=== PATIENT | male | born 1990 | race Caucasian/White ===

== ENCOUNTER 2019-01-01 11:30 | Emergency (ER) | payer SELFPAY ==
[2019-01-01 14:03] VITALS: BP 130/89
[2019-01-01] MEDS ORDERED: Azithromycin TAB* 250 MG PO ONE (15:38)
[2019-01-01] MEDS ORDERED: cefTRIAXone VIAL(*) 250 MG VIAL IM ONE (15:38)
[2019-01-01] MEDS ORDERED: Lidocaine 1%* 5 ML VIAL INJ ONE (15:39)
--- NOTE | 2019-01-01 15:50 | UC ---
Complaint Male HPI - HPI Summary HPI Summary: 28-year-old male presents for testing for sexually transmitted infection stating that he was notified by one of his sexual partners that they had tested positive for either syphilis or chlamydia. Denies fever, chills, abdominal pain , nausea, vomiting, dysuria, frequency, urgency, hematuria, penile discharge, or penile lesions. - History of Current Complaint Chief Complaint: UCSTDScreening Stated Complaint: PERSONAL Time Seen by Provider: 01/01/19 14:39 Hx Obtained From: Patient Pain Intensity: 0 - Allergies/Home Medications Allergies/Adverse Reactions: Allergies Allergy/AdvReac Type Severity Reaction Status Date / Time No Known Allergies Allergy Verified 01/01/19 14:04 Home Medications: Home Medications NK [No Home Medications Reported] 01/01/19 [History Confirmed 01/01/19] PMH/Surg Hx/FS Hx/Imm Hx Previously Healthy: Yes - Denies significant PMH - Surgical History Surgical History: Yes Surgery Procedure, Year, and Place: collar bone reconstruction - Family History Known Family History: Positive: Non-Contributory - Social History Occupation: Student Lives: Dormitory/Roommates Alcohol Use: None Substance Use Type: None Smoking Status (MU): Never Smoked Tobacco Review of Systems All Other Systems Reviewed And Are Negative: Yes Constitutional: Negative: Fever, Chills Skin: Negative: Rash Respiratory: Positive: Negative Cardiovascular: Positive: Negative Gastrointestinal: Positive: Negative Genitourinary: Negative: Dysuria, Hematuria, Frequency, Urgency, Vaginal/Penile Burning, Vaginal/Penile Itching, Vaginal/Penile Discharge, Vaginal/Penile Pain, Vaginal/Penile Tenderness, Ulceration/Lesion Musculoskeletal: Positive: Negative Neurological: Positive: Negative Is Patient Immunocompromised?: No Physical Exam - Summary Physical Exam Summary: GENERAL APPEARANCE: Well developed, well nourished, alert and cooperative, and appears to be in no acute distress. NECK: Neck supple, non-tender without lymphadenopathy. CARDIAC: Normal S1 and S2. No S3, S4 or murmurs. Rhythm is regular. There is no peripheral edema, cyanosis or pallor. Extremities are warm and well perfused. Capillary refill is less than 2 seconds. Peripheral pulses intact. LUNGS: Clear to auscultation without rales, rhonchi, wheezing or diminished breath sounds. ABDOMEN: Positive bowel sounds. Soft, nondistended, nontender. No guarding or rebound. No masses or hepatosplenomegally. GENTIURINARY: Normal penis without lesion or discharge. Non-tender testicles. No scrotal swelling. MUSKULOSKELETAL: ROM intact to all extremities. No joint erythema or tenderness. Normal muscular development. Normal gait. SKIN: Skin normal color, texture and turgor with no lesions or eruptions. Triage Information Reviewed: Yes Vital Signs: Initial Vital Signs Temp 98.3 F 01/01/19 14:00 Pulse 64 01/01/19 14:00 Resp 16 01/01/19 14:00 BP 130/89 01/01/19 14:00 Pulse Ox 100 01/01/19 14:00 Vital Signs Reviewed: Yes Complaint Male Course/Dx - Course Course Of Treatment: 28-year-old male presents for testing for sexually transmitted infection stating that he was notified by one of his sexual partners that they had tested positive for either syphilis or chlamydia. Denies fever, chills, abdominal pain, nausea, vomiting, dysuria, frequency, urgency, hematuria, penile discharge, or penile lesions. Afebrile. Vital signs stable. Exam reveals a young adult male in no acute distress with an unremarkable exam. Testing was performed for gonorrhea, chlamydia, syphilis, and HIV. Patient did get in touch with his sexual partner and verified that she had tested positive for chlamydia therefore patient received Rocephin 250 mg IM and azithromycin 1 g PO in the clinic. He was counseled to abstain from sexual intercourse for the next week and that he needed to consistently use condoms for the next 3 months until he is retested for HIV as a negative result at this time does not rule out possible infection. He is to follow-up with his primary care provider as needed. Anticipatory guidance and warning symptoms were reviewed with the patient. Verbalizes understanding and agrees with plan of care. - Differential Dx/Diagnosis Differential Diagnosis/HQI/PQRI: Urinary Tract Infection, Other - STI Provider Diagnosis: Exposure to chlamydia Discharge - Sign-Out/Discharge Documenting (check all that apply): Patient Departure All imaging exams completed and their final reports reviewed: No Studies - Discharge Plan Condition: Stable Disposition: HOME Patient Education Materials: Chlamydia (ED), Sexually Transmitted Diseases (ED) , Condom Use (ED), Safe Sex (ED) Referrals: No Primary Care Phys,NOPCP [Primary Care Provider] - Additional Instructions: You were tested today for gonorrhea, chlamydia, syphillis, and HIV. We will contact you if any of these are positive or there is any need to change your plan of care. You were treated today for possible chlamydia with 2 antibiotics call ceftriazone 250 mg and azithromycin 1000 mg which will treat you for chlamydia. You should abstain for all sexual intercourse for the next week. Should you wear a condom with all sexual intercourse for at least the next 3 months until you are retested for HIV as a negative test right now does not rule out a possible infection. Follow up with you primary care provider as needed. - Billing Disposition and Condition Condition: STABLE Disposition: Home
[2019-01-02 12:36] LABS: Neisseria gonorrhoeae (GC) RNA Negative (Negative)
== END 2019-01-01 16:15 | disposition home or self-care (01) ==
LOC: UCEAST 11:30
DX: Z11.3 Encounter for screening for infections with a predominantly sexual mode of transmission (principal)
CPT/HCPCS: 36415; 86592; 86703; 87491; 87591; 96372; 99202; A9270-GY; G0463; J0696